=== PATIENT | male | born 1950 | race Caucasian/White ===

== ENCOUNTER → 2018-03-30 | Outpatient (CLI) | payer OTHER ==
--- NOTE | 2018-03-30 09:02 | DIAGNOSTIC IMAGING REPORT ---
C-SPINE ROUTINE 4 OR 5 VIEWS CLINICAL HISTORY: S13.4XXA neck pain COMPARISON STUDY: No previous studies for comparison. FINDINGS: The prevertebral soft tissues are normal. There are multilevel degenerative changes with disc space narrowing most pronounced the C4-5, C5-6, and C6-7 levels. No destructive lesions are visualized. No fractures or subluxations are evident. IMPRESSION: 1. No fractures identified 2. Moderate multilevel degenerative change Electronically signed by: Flip Lorenzo M.D. 03/30/2018 9:01 AM Dictated Date/Time: 03/30/2018 9:00 AM
== END | disposition home or self-care (01) ==
LOC: C.RADBC 08:36
PROVIDERS: ATTEND Family Medicine
DX: S13.4XXA Sprain of ligaments of cervical spine, initial encounter (principal); X58.XXXA Exposure to other specified factors, initial encounter; M47.812 Spondylosis without myelopathy or radiculopathy, cervical region